=== PATIENT | male | born 1980 | race Caucasian/White ===

== ENCOUNTER 2023-05-21 09:59 | Emergency (ER) | payer BC, SELFPAY ==
[2023-05-21 10:01] VITALS: BP 162/99
[2023-05-21 10:43] VITALS: BMI 53.9
--- NOTE | 2023-05-21 11:01 | ED.GENMED ---
History of Present Illness
<Michelle Michelle PA-C - Last Filed: 05/21/23 18:21>
General
Chief Complaint: Abdominal Pain
Source: patient
Exam Limitations: none
Time Seen by Provider: 05/21/23 10:39
Nursing documentation reviewed up to this point in time: agreed with
Travel History
Have you had any contact with someone who has COVID-19?: No
Do you have any symptoms of coronavirus? Fever > 100 degrees, chills, cough, shortness of breath, sore throat, loss of taste or smell, muscle aches, or headache?: No
History of Present Illness
History of Present Illness:
Patient is a 42-year-old male with history of POTS, diabetes, hypertension presenting for evaluation of left upper quadrant abdominal pain with associated vomiting. Symptoms started acutely last night around 3 AM. He woke from sleep with pain in
his left quadrant and proceeded to vomit forcefully multiple times. Patient has repeatedly vomited multiple times throughout the morning with the last time being about 1 hour ago.. He describes abdominal pain as a dull ache in his left upper
quadrant. He did endorse nausea which has somewhat improved. Patient denies any chest pain, shortness of breath, or back pain. He has not had any diarrhea. He has somewhat infrequent bowel movements every 3 to 4 days but most recently did not
have one for about 5 days. He does report a bowel movement this morning that was normal per patient. He took Pepto-Bismol yesterday and today.
Patient did have an H. pylori infection over 15 years ago which was treated with antibiotics. Patient also endorses recent treatment of antibiotics for sinus infection.
Past History
<Michelle Michelle PA-C - Last Filed: 05/21/23 18:21>
Past History
ED Past Medical History: GERD, HTN, Psychiatric (Anxiety) and Other (POTS, Migraines, Sleep apnea uses CPAP, H-pylori, )
ED Past Surgical History: Other (Bilateral Myringotomy tubes with removal)
Patient has exhibited threatening behavior?: No
PSI?: No
Social History
Tobacco: Former smoker
Alcohol: None
Drug: None
Personal:
Living: with family
Employment: Employed (IT)
Family History
Family History: Early CAD and Other (His father had an ME at age 45)
Phy Exam
<Michelle Michelle PA-C - Last Filed: 05/21/23 18:21>
Physical Exam
Physical Exam:
General: In no apparent distress and non-toxic
Vitals: Vital signs stable, afebrile
HEENT: Atraumatic, normocephalic; pupils equal round reactive to light bilaterally, no scleral icterus, protecting airway
Neck: appears supple, no JVD
CV: Regular rate and rhythm, heart sounds normal, no evidence of cyanosis
Resp: No evidence of respiratory distress, no accessory muscle use
Abd: Soft, some mild tenderness in left upper quadrant without rebound or guarding, no tenderness to right upper quadrant, negative Jones sign; non-distended
Extremities: No deformities, no evidence of cyanosis or edema
Neuro: alert and oriented x [address] time, speech normal, no focal motor deficits
Psych: Normal affect
Skin: Intact, no rashes or jaundice
Course
<Michelle Michelle PA-C - Last Filed: 05/21/23 18:21>
Orders/Labs/Results
Orders:
Orders
05/21/23 11:15
Ketorolac [Toradol] 15 mg IV NOW STA
Abdomen Xray - 1 View [CR Abdomen - 1 View] Urgent
Comment: hx constipation
Reason For Exam: LUQ abdominal pain, vomiting
05/21/23 11:19
0.9% Sodium Chloride 1000 ml [Nss] 1,000 ml IV BOLUS
05/21/23 11:22
Complete Blood Count/With Diff Urgent
Comprehensive Metabolic Panel Urgent
Lipase Urgent
Monotest Urgent
Abnormal Lab Results
05/21/23
11:22
WBC 14.2 H 10^3/uL
(4.8-10.8)
RDW 14.7 H %
(11.5-14.5)
MPV 11.1 H fL
(7.4-10.4)
Abs Immat Gran (auto) 0.1 H 10^3/uL
(0-0.05)
Absolute Neuts (auto) 12.9 H 10^3/uL
(1.4-6.5)
Absolute Lymphs (auto) 0.6 L 10^3/uL
(1.2-3.4)
Neutrophils % 90.9 H %
(42.2-75.2)
Lymphocytes % 4.0 L %
(20.5-51.1)
Sodium 132 L mmol/L
(135-145)
Carbon Dioxide 19 L mmol/L
(22-30)
BUN 23 H mg/dl
(9-20)
Glucose 121 H mg/dl
(70-99)
Total Bilirubin 2.2 H mg/dl
(0.2-1.3)
05/21/23 11:22
05/21/23 11:22
Vital Signs
Initial and Last Documented VS:
Initial Vital Signs
Temp Pulse Resp BP Pulse Ox
99.1 F 99 18 162/99 97
05/21/23 10:01 05/21/23 10:01 05/21/23 10:01 05/21/23 10:01 05/21/23 10:01
Last Documented Vital Signs
Temp Pulse Resp BP Pulse Ox
99.1 F 97 20 165/90 99
05/21/23 10:01 05/21/23 14:02 05/21/23 14:02 05/21/23 14:02 05/21/23 14:02
<Bishnu Pradhan, DO - Last Filed: 05/21/23 11:16>
Orders/Labs/Results
Orders:
Orders
05/21/23 11:15
Ketorolac [Toradol] 15 mg IV NOW STA
Abdomen Xray - 1 View [CR Abdomen - 1 View] Urgent
Comment: hx constipation
Reason For Exam: LUQ abdominal pain, vomiting
05/21/23 11:19
0.9% Sodium Chloride 1000 ml [Nss] 1,000 ml IV BOLUS
05/21/23 11:22
Complete Blood Count/With Diff Urgent
Comprehensive Metabolic Panel Urgent
Lipase Urgent
Monotest Urgent
Abnormal Lab Results
05/21/23
11:22
WBC 14.2 H 10^3/uL
(4.8-10.8)
RDW 14.7 H %
(11.5-14.5)
MPV 11.1 H fL
(7.4-10.4)
Abs Immat Gran (auto) 0.1 H 10^3/uL
(0-0.05)
Absolute Neuts (auto) 12.9 H 10^3/uL
(1.4-6.5)
Absolute Lymphs (auto) 0.6 L 10^3/uL
(1.2-3.4)
Neutrophils % 90.9 H %
(42.2-75.2)
Lymphocytes % 4.0 L %
(20.5-51.1)
Sodium 132 L mmol/L
(135-145)
Carbon Dioxide 19 L mmol/L
(22-30)
BUN 23 H mg/dl
(9-20)
Glucose 121 H mg/dl
(70-99)
Total Bilirubin 2.2 H mg/dl
(0.2-1.3)
05/21/23 11:22
05/21/23 11:22
Vital Signs
Initial and Last Documented VS:
Initial Vital Signs
Temp Pulse Resp BP Pulse Ox
99.1 F 99 18 162/99 97
05/21/23 10:01 05/21/23 10:01 05/21/23 10:01 05/21/23 10:01 05/21/23 10:01
Last Documented Vital Signs
Temp Pulse Resp BP Pulse Ox
99.1 F 97 20 165/90 99
05/21/23 10:01 05/21/23 14:02 05/21/23 14:02 05/21/23 14:02 05/21/23 14:02
<Michelle Michelle PA-C - Last Filed: 05/21/23 18:21>
MDM/Problems Addressed
Differential Diagnosis Includes:
viral gastritis, bacterial gastritis, cosntipation
MDM/Problems Addressed:
Patient is a 42-year-old male presenting for evaluation of left upper quadrant abdominal pain and vomiting since this morning. Symptoms started around 3 AM and reports multiple forceful episodes of vomiting. He had a bowel movement prior to coming
to emergency department. He has not had any vomiting episodes since arrival to the emergency department and remains asymptomatic. He denies any fever, chills, back pain, chest pain, shortness of breath. No recent trauma to area. Physical exam as
document above. Patient is well-appearing, nontoxic and afebrile. Hemodynamically stable. He has very mild left upper quadrant leila pain without rebound or guarding. Will check basic labs, lipase. Will check mono test given location of pain.
Given symptoms are improved and he has current discomfort�will avoid CT for now. Will get abdominal x-ray. Will start IV fluids will reassess
CBC shows leukocytosis of 14.2�reactive versus viral for sinus etiology. No other abnormalities noted. CMP shows findings consistent with dehydration. His bilirubin is elevated to 2.2 which is up from last month. Lipase negative. Chase negative.
Abdominal x-ray shows nonobstructive gas pattern.
Patient symptoms have completely resolved. He has tolerated banana and p.o. He has not had any further recurrence of abdominal pain or vomiting since arrival to emergency department. Given elevated bilirubin repeat abdominal exam benign, no right
upper quadrant tenderness. Does endorse history of fatty liver. Patient aware of lab elevation and will have results rechecked by primary care. He is feeling better, in no distress he is stable for discharge with return precautions, primary care
follow-up. Patient is comfortable with this plan. All questions answered.
Chronic conditions affecting care:
POTS, HTN, fatty liver disease, DM, H. Pylori
Acute Exacerbation and/or Progression of Chronic Illness:
Abdominal pain, vomiting
<Michelle Michelle PA-C - Last Filed: 05/21/23 18:21>
*Radiology
Radiology exam reviewed: preliminary read by ED provider and radiology read reviewed
*Pulse Oximetry
Patient hypoxic: no
*Environmental Management Specialist Interpretation
Rate: Environmental Management Specialist- N/A
*Critical Care Note
Total Time (30-74mins, 75-104mins- exclusive of procedures): Not Applicable
ED Attending Note
<Michelle Michelle PA-C - Last Filed: 05/21/23 18:21>
-
Portions of this chart may have been created with voice recognition software.� Occasional wrong word or��sound alike� substitutions may have occurred due to the inherent limitations of voice recognition software.
<Bishnu Pradhan DO - Last Filed: 05/21/23 11:16>
ED Attending Note
Patient seen and examined by attending physician: Yes
I performed the substantive portion of visit, reviewed & personally made and approve the management plan that is documented in note by myself or CARLOS.: Yes
ED Attending Note:
I have seen and evaluated the patient with a [id number] encounter. I have spoken to the advance practicer provider and involved in the medical history, the physical exam, medical decision making.
Evaluation and management service: agree unless noted differently below.
Results interpretation: agree unless noted differently below.
Focused HPI: 42-year-old male presenting with left upper quadrant pain. This caused nausea and vomiting earlier today. Patient now states his symptoms are resolving. He was unsure if this is related to constipation or perhaps gastritis
Physical exam: Well-appearing nontoxic. Very mild left upper quadrant pain. No rebound
Medical Decision Making: We discussed the possibility of gastritis versus constipation. Given his history, will obtain x-ray. Since symptoms are resolving, will avoid CT
Discharge Plan
Departure
Patient Disposition: Home (Routine Discharge)
Date of Disposition: 05/21/23
Time of Disposition: 13:46
Patient with high blood pressure during this ER visit?: Yes
Condition: Good
Covid-19: Not Applicable
Discharge Problem:
Abdominal pain, Vomiting
Instructions: Dehydration, Adult (DC), Nausea and Vomiting, Adult (DC), Abdominal Pain, BLOOD PRESSURE
Prescriptions:
New
ondansetron 4 mg tablet,disintegrating
4 mg PO TIDPRN PRN (Reason: nausea/vomiting) Qty: 7 0RF
No Action
propranolol 10 mg Tablet
10 mg PO TID
sertraline [Zoloft] 25 mg tablet
25 mg PO DAILY Qty: 30 0RF
pantoprazole [Protonix] 40 mg tablet,delayed release (DR/EC)
40 mg PO DAILY Qty: 30 0RF
sucralfate [Carafate] 1 gram tablet
1 g PO ACHS Qty: 40 0RF
Rx Instructions:
Use 30min to 1 hour before meals and HS
sertraline [Zoloft] 50 mg tablet
50 mg PO DAILY Qty: 30 1RF
Rx Instructions:
1/2 tablet daily for 2 weeks, then increase to 1 tablet daily thereafter
prednisone 20 mg tablet
40 mg PO DAILY 4 Days Qty: 8 0RF
albuterol sulfate 90 mcg/actuation aerosol powdr breath activated
2 inh inhalation Q6H PRN (Reason: shortness of breath or wheezing) Qty: 1 0RF
Pulmicort Flexhaler 180 mcg/actuation aerosol powdr breath activated
1 inh inhalation BID Qty: 1 0RF
albuterol sulfate 2.5 mg /3 mL (0.083 %) solution for nebulization
2.5 mg inhalation Q6H PRN (Reason: shortness of breath or wheezing) Qty: 75 0RF
sertraline [Zoloft] 50 mg tablet
50 mg PO DAILY Qty: 90 0RF
pantoprazole [Protonix] 40 mg tablet,delayed release (DR/EC)
40 mg PO DAILY Qty: 14 0RF
Referrals:
Beau Lopez DO [Family Provider] - Follow up in 1 week
Activity Restrictions/Additional Instructions:
- Return to the emergency department any high fevers, chest pain, shortness of breath, severe abdominal pain, intractable vomiting, signs of severe dehydration, severe back pain, worsening current symptoms, or any other concerns
-You can take Zofran every 8 hours as needed for nausea. This prescription is sent to your pharmacy
-Stay well-hydrated. Recommend bland diet and advance as tolerated.
-As discussed�your bilirubin level is slightly elevated in the emergency department today. You should have your blood work rechecked by her primary care provider to ensure does not remain elevated.
-Follow-up with primary care for further evaluation/treatment
Interventions
Interventions:
*Risk Screen - Suicide Last Done: 05/21/23 10:01
*General Assessment Last Done: 05/21/23 10:01
*Neglect/Abuse Screening Last Done: 05/21/23 10:01
ED- Fall Risk Assessment Last Done: 05/21/23 10:43
*ED COVID-19 Vaccine History Last Done: 05/21/23 10:43
*Nursing Disposition Last Done: 05/21/23 14:03
SJ-Txjajf-[id number] Assessment Last Done: 05/21/23 10:43
Discharge Date and Time
Discharge Date/Time: 05/21/23 14:03
[2023-05-21] MEDS: TORADOL 15 MG IV (11:20)
[2023-05-21] MEDS: NSS 1000 IV (11:21)
[2023-05-21 11:34] LABS: % Basophils 0.1 % (0-2); % Eosinophils 0.5 % (0-6); % Immature Granulocytes 0.5 % (0-0.5); % Neutrophils 90.9 % (42.2-75.2); Absolute Eosinophils 0.1 10^3/uL (0-0.7); Absolute Immature Granulocytes 0.1 10^3/uL (0-0.05); Absolute Lymphocytes 0.6 10^3/uL (1.2-3.4); Absolute Monocytes 0.6 10^3/uL (0.1-0.6); Absolute Neutrophils 12.9 10^3/uL (1.4-6.5); Hematocrit 41.4 % (39.0-52.0); Hemoglobin 14.2 g/dL (13.0-18.0); Mean Corp Hgb Conc. 34.3 g/dL (33.0-37.0); Mean Corpuscular Hgb 27.8 pg (27.0-31.0); Mean Corpuscular Volume 81.2 fL (80.0-94.0); Mean Platelet Volume 11.1 fL (7.4-10.4); Nucleated Red Blood Cells % 0 % (-); Platelet Count 149 10^3/uL (130-400); Red Cell Dist. Width 14.7 % (11.5-14.5); White Blood Cell Count 14.2 10^3/uL (4.8-10.8)
[2023-05-21 11:52] LABS: ALT (SGPT) 29 U/L (0-50); AST (SGOT) 41 U/L (17-59); Albumin 4.2 g/dl (3.5-5.0); Alkaline Phosphatase 66 U/L (38-126); Blood Urea Nitrogen 23 mg/dl (9-20); Calcium 8.5 mg/dl (8.4-10.2); Carbon Dioxide 19 mmol/L (22-30); Chloride 105 mmol/L (98-107); Estimated Creatinine Clearance > 125 ml/min; Glucose 121 mg/dl (70-99); Lipase 89 U/L (23-300); Potassium 4.3 mmol/L (3.5-5.1); Sodium 132 mmol/L (135-145); Total Bilirubin 2.2 mg/dl (0.2-1.3); Total Protein 7.3 g/dl (6.3-8.2); eGFR > 60.00
[2023-05-21 11:56] LABS: Monotest Negative (Negative)
[2023-05-21 14:02] VITALS: BP 165/90
== END 2023-05-21 14:03 | disposition home or self-care (01) ==
LOC: EMR 09:59
PROVIDERS: Physician Assistant; EMERGENCY PHYSICIAN Student in an Organized Health Care Education/Training Program; FAMILY PHYSICIAN Family Medicine
DX: R10.12 Left upper quadrant pain (principal); G90.A Postural orthostatic tachycardia syndrome [POTS]; R11.2 Nausea with vomiting, unspecified
CPT/HCPCS: 99284; 96374; 96361; 74018; 80053; 83690; 85025; 86308

== ENCOUNTER 2024-01-16 17:20 | Emergency (ER) | payer BC, SELFPAY ==
[2024-01-16 17:24] VITALS: BP 144/92
[2024-01-16 17:30] VITALS: BMI 58.5
[2024-01-16 17:45] LABS: % Basophils 0.6 % (0-2); % Eosinophils 2.3 % (0-6); % Immature Granulocytes 0.3 % (0-0.5); % Lymphocytes 38.1 % (20.5-51.1); % Monocytes 9.4 % (1.7-9.3); % Neutrophils 49.3 % (42.2-75.2); Absolute Eosinophils 0.2 10^3/uL (0-0.7); Absolute Lymphocytes 2.5 10^3/uL (1.2-3.4); Absolute Monocytes 0.6 10^3/uL (0.1-0.6); Absolute Neutrophils 3.3 10^3/uL (1.4-6.5); Hematocrit 40.8 % (39.0-52.0); Hemoglobin 13.9 g/dL (13.0-18.0); Mean Corp Hgb Conc. 34.1 g/dL (33.0-37.0); Mean Corpuscular Hgb 26.8 pg (27.0-31.0); Mean Corpuscular Volume 78.6 fL (80.0-94.0); Mean Platelet Volume 10.8 fL (7.4-10.4); Nucleated Red Blood Cells % 0 % (-); Platelet Count 182 10^3/uL (130-400); Red Blood Cell Count 5.19 10^6/uL (4.70-6.10); Red Cell Dist. Width 14.4 % (11.5-14.5); White Blood Cell Count 6.6 10^3/uL (4.8-10.8)
[2024-01-16 17:59] LABS: ALT (SGPT) 73 U/L (0-50); AST (SGOT) 44 U/L (17-59); Albumin 4.4 g/dl (3.5-5.0); Alkaline Phosphatase 85 U/L (38-126); Blood Urea Nitrogen 16 mg/dl (9-20); Calcium 9.4 mg/dl (8.4-10.2); Carbon Dioxide 28 mmol/L (22-30); Chloride 101 mmol/L (98-107); Estimated Creatinine Clearance > 125 ml/min; Glucose 207 mg/dl (70-99); Potassium 4.3 mmol/L (3.5-5.1); Sodium 139 mmol/L (135-145); Total Bilirubin 0.9 mg/dl (0.2-1.3); Total Protein 7.4 g/dl (6.3-8.2); eGFR > 60.00
[2024-01-16 18:00] VITALS: BP 130/82
[2024-01-16 18:11] LABS: Troponin I < 0.012 ng/ml
--- NOTE | 2024-01-16 18:45 | ED.GENMED ---
History of Present Illness
General
Chief Complaint: Cardiac Symptoms
Source: patient
Time Seen by Provider: 01/16/24 18:40
History of Present Illness
History of Present Illness:
43-year-old male presents emergency room complaint palpitations. Patient has had history of palpitations. He takes propranolol 3 times a day. Patient noted the increased heart rate earlier today which lasted for an hour or so. Symptoms seem to
improve but then recurred prompting his call to 911. No shortness of breath. No chest pain. Patient states he has history of POTS.
Past History
Past History
ED Past Medical History: GERD, HTN, Psychiatric (Anxiety) and Other (POTS, Migraines, Sleep apnea uses CPAP, H-pylori, )
ED Past Surgical History: Other (Bilateral Myringotomy tubes with removal)
Patient has exhibited threatening behavior?: No
PSI?: No
Social History
Tobacco: Former smoker
Alcohol: None
Drug: None
Personal:
Living: with family
Employment: Employed (IT)
Family History
Family History: Early CAD and Other (His father had an [place] at age 45)
Phy Exam
Physical Exam
Physical Exam:
General: Awake, Alert, Oriented X3. No acute distress.
Vitals: unremarkable
Head: Atraumatic
Eyes: Pupils equal, EOMI
Throat: Airway intact, no exudates
Neck: Trachea midline
Lungs: Clear and equal b/l
Heart: Regular rate, no murmurs
Abd: Soft, Nontender, No pulsatile mass
Neuro: Nonfocal
Skin: Warm, dry, no rash
Extremities: pulses equal b/l, no edema
Course
Orders/Labs/Results
Orders:
Orders
01/16/24 17:26
Electrocardiogram (*1) Urgent
Reason for Study: Palpitations
EKG- Treatment ONCE
01/16/24 17:37
Complete Blood Count/With Diff Urgent
Comprehensive Metabolic Panel Urgent
Troponin I Urgent
Abnormal Lab Results
01/16/24
17:37
MCV 78.6 L fL
(80.0-94.0)
MCH 26.8 L pg
(27.0-31.0)
MPV 10.8 H fL
(7.4-10.4)
Monocytes % 9.4 H %
(1.7-9.3)
Glucose 207 H mg/dl
(70-99)
ALT 73 H U/L
(0-50)
01/16/24 17:37
01/16/24 17:37
Vital Signs
Initial and Last Documented VS:
Initial Vital Signs
Temp Pulse Resp BP Pulse Ox
97.8 F 88 20 144/92 98
01/16/24 17:24 01/16/24 17:24 01/16/24 17:24 01/16/24 17:24 01/16/24 17:24
Last Documented Vital Signs
Temp Pulse Resp BP Pulse Ox
97.8 F 77 24 118/90 97
01/16/24 17:24 01/16/24 21:45 01/16/24 21:45 01/16/24 19:00 01/16/24 21:45
MDM/Problems Addressed
Differential Diagnosis Includes:
pvc's, pac's, dysryhtmia
MDM/Problems Addressed:
Labs reassuring. No dysrhythmia, PVC or PACs noted on monitoring. Stable for discharge home and follow-up with his finance manager
*Pulse Oximetry
Patient hypoxic: no
*EKG
Interpreted by ED Provider?: Yes
Heart Rate: 76
Rate: normal
Rhythm: sinus
[place]: normal axis
Interval: normal interval
QRS Pattern: normal QRS
Ischemia: no ischemia
*Back Tender Interpretation
Rate: normal
Interpretation: normal
Rhythm: sinus
*Critical Care Note
Total Time (30-74mins, 75-104mins- exclusive of procedures): Not Applicable
ED Attending Note
-
Portions of this chart may have been created with voice recognition software.� Occasional wrong word or��sound alike� substitutions may have occurred due to the inherent limitations of voice recognition software.
Discharge Plan
Departure
Patient Disposition: Home (Routine Discharge)
Date of Disposition: 01/16/24
Time of Disposition: 21:20
Patient with high blood pressure during this ER visit?: No
Condition: Good
Discharge Problem:
Palpitations
Instructions: Palpitations ED
Prescriptions:
No Action
propranolol 10 mg Tablet
10 mg PO TID
sertraline [Zoloft] 25 mg tablet
25 mg PO DAILY Qty: 30 0RF
pantoprazole [Protonix] 40 mg tablet,delayed release (DR/EC)
40 mg PO DAILY Qty: 30 0RF
sucralfate [Carafate] 1 gram tablet
1 g PO ACHS Qty: 40 0RF
Rx Instructions:
Use 30min to 1 hour before meals and HS
sertraline [Zoloft] 50 mg tablet
50 mg PO DAILY Qty: 30 1RF
Rx Instructions:
1/2 tablet daily for 2 weeks, then increase to 1 tablet daily thereafter
prednisone 20 mg tablet
40 mg PO DAILY 4 Days Qty: 8 0RF
albuterol sulfate 90 mcg/actuation aerosol powdr breath activated
2 inh inhalation Q6H PRN (Reason: shortness of breath or wheezing) Qty: 1 0RF
Pulmicort Flexhaler 180 mcg/actuation aerosol powdr breath activated
1 inh inhalation BID Qty: 1 0RF
albuterol sulfate 2.5 mg /3 mL (0.083 %) solution for nebulization
2.5 mg inhalation Q6H PRN (Reason: shortness of breath or wheezing) Qty: 75 0RF
sertraline [Zoloft] 50 mg tablet
50 mg PO DAILY Qty: 90 0RF
pantoprazole [Protonix] 40 mg tablet,delayed release (DR/EC)
40 mg PO DAILY Qty: 14 0RF
ondansetron 4 mg tablet,disintegrating
4 mg PO TIDPRN PRN (Reason: nausea/vomiting) Qty: 7 0RF
Referrals:
Beau Lopez DO [Family Provider] -
Activity Restrictions/Additional Instructions:
Please follow up with your primary care provider.
Interventions
Interventions:
*Risk Screen - Suicide Last Done: 01/16/24 17:32
*General Assessment Last Done: 01/16/24 17:32
*Neglect/Abuse Screening Last Done: 01/16/24 17:32
ED- Fall Risk Assessment Last Done: 01/16/24 17:32
*ED COVID-19 Vaccine History Last Done: 01/16/24 17:32
*Nursing Disposition Last Done: 01/16/24 22:08
ED- Pulmonary Assessment Last Done: 01/16/24 17:32
ED- Cardiac Assessment Last Done: 01/16/24 17:32
Discharge Date and Time
Discharge Date/Time: 01/16/24 22:09
Print Language: PORTUGUESE
[2024-01-16 19:00] VITALS: BP 118/90
== END 2024-01-16 22:09 | disposition home or self-care (01) ==
LOC: EMR 17:20
PROVIDERS: EMERGENCY PHYSICIAN Emergency Medicine; FAMILY PHYSICIAN Family Medicine
DX: R00.2 Palpitations (principal); R00.0 Tachycardia, unspecified; I10 Essential (primary) hypertension; G90.A Postural orthostatic tachycardia syndrome [POTS]; G43.909 Migraine, unspecified, not intractable, without status migrainosus; G47.30 Sleep apnea, unspecified; F41.9 Anxiety disorder, unspecified; K21.9 Gastro-esophageal reflux disease without esophagitis; Z87.891 Personal history of nicotine dependence; Z88.5 Allergy status to narcotic agent
CPT/HCPCS: 99283; 80053; 84484; 85025; 93005